=== PATIENT | female | born 1995 | race Caucasian/White ===

== ENCOUNTER 2016-11-02 11:09 | Emergency (ER) | payer SELFPAY ==
[2015-10-01 11:30] VITALS: Ht 175.3 cm; Wt 110.2 kg
[~2016-11-02] VITALS: Ht 175.3 cm; Wt 110.2 kg
[~2016-11-02 11:09] MED LIST: AMOX500T2; BUSPIRONE; NEOMYCIN; [UNRECOGNIZED DRUG - OTHER]; cephalexin; loratidine
[2016-11-02 11:23] VITALS: BP 122/74; PULSE 67; RESP 18; TEMP 97; O2SAT 98
--- NOTE | 2016-11-02 11:35 | NUR ---
Vin garcia in ED - 11/02/16 at 1936 by KWAME Patient to bed 2 to [facility] for evaluation. Side rails up.
[2016-11-02 12:15] LABS: BASOPHILS % (AUTO) 0.5 % (0.0-2.0); EOSINOPHILS # (AUTO) 0.2 K/uL (0.0-0.4); EOSINOPHILS % (AUTO) 2.9 % (0.0-4.0); HEMATOCRIT 40.9 % (36-48); HEMOGLOBIN 13.4 g/dL (12.0-16.0); LYMPHOCYTES % (AUTO) 31.8 % (20.5-51.5); MEAN CORPUSCULAR HEMOGLOBIN 28 pg (27-31); MEAN CORPUSCULAR HGB CONC 33 % (32-36); MEAN CORPUSCULAR VOLUME 86 fL (79.0-98.0); MONOCYTES # (AUTO) 0.3 K/uL (0.0-1.0); MONOCYTES % (AUTO) 4.7 % (1.7-9.3); NEUTROPHILS # (AUTO) 3.7 K/uL (1.8-7.7); NEUTROPHILS % (AUTO) 60.1 % (40.0-70.0); PLATELET COUNT (AUTO) 227 K/uL (130-430); RED BLOOD CELL COUNT(AUTO) 4.74 MIL/uL (4.2-6.2); RED CELL DISTRIBUTION WIDTH 13.1 % (9.0-15.0); WHITE BLOOD COUNT (AUTO) 6.2 K/uL (4.8-10.8)
[2016-11-02 12:21] LABS: CALCIUM 8.8 mg/dL (8.4-11.0); CREATININE 0.76 mg/dL (0.55-1.30); POTASSIUM 3.8 mmol/L (3.5-5.1)
[2016-11-02 12:26] LABS: ALBUMIN 3.6 g/dL (3.4-4.8); TOTAL BILIRUBIN 0.8 mg/dL (0.0-1.0); TOTAL PROTEIN, SERUM 7.2 g/dL (6.4-8.3)
--- NOTE | 2016-11-02 12:30 | NUR ---
Patient to ER bed 02 to gown for evaluation. Side rails up by Renetta
[2016-11-02 12:42] LABS: PROTHROMBIN TIME 10.4 SECS (9.5-12.5)
--- NOTE | 2016-11-02 13:19 | NUR ---
ER at bedside examining patient.
[2016-11-02] MEDS ORDERED: KETOROLAC TROMETHAMINE 60 MG/2 ML VIAL IM ONE (13:30)
--- NOTE | 2016-11-02 13:43 | NUR ---
Note undone in EDM - 11/02/16 at 1356 by ALEXANDRO Patient given written and verbal discharge instructions and verbalizes understanding. ER MD discussed with patient the results and treatment provided. Given copies of tests performed in ER. Patient in stable condition. ID arm band removed. Rx of MOTRIN, SUDAFED, ZITHROMAX given. Patient educated on pain management and to follow up with PMD. Pain Scale 0/10. Opportunity for questions provided and answered.
[2016-11-02 13:51] VITALS: BP 131/71; PULSE 72; RESP 19; TEMP 97.2; O2SAT 99
--- NOTE | 2016-11-02 13:51 | NUR ---
Patient given written and verbal discharge instructions and verbalizes understanding. ER MD discussed with patient the results and treatment provided. Given copies of tests performed in ER. Patient in stable condition. ID arm band removed. Rx of MOTRIN, NORCO given. Patient educated on pain management and to follow up with PMD. Pain Scale 0/10. Opportunity for questions provided and answered.
== END 2016-11-02 13:51 | disposition home or self-care (01) ==
LOC: SED 11:09
DX: N64.4 Mastodynia (principal); Z91.040 Latex allergy status
CPT/HCPCS: 36415; 80053; 81025; 84703; 85025; 85610; 85730; 99284; J1885

== ENCOUNTER 2017-09-03 13:20 | Emergency (ER) | payer MEDICAID ==
[~2017-09-03] VITALS: Ht 175.3 cm; Wt 104.3 kg
[2017-09-03 13:20] VITALS: BP_SYST 132
[~2017-09-03 13:20] MED LIST changes: -BUSPIRONE; -NEOMYCIN; -[UNRECOGNIZED DRUG - OTHER]; -cephalexin; -loratidine
--- NOTE | 2017-09-03 13:20 | NUR ---
Patient triaged and placed in waiting room. VSS and patient appears in no acute distress at this time. Accompanied by SELF, awaiting available bed, and MD notified of need for MSE.
--- NOTE | 2017-09-03 14:25 | NUR ---
PT STATES THAT SHE DOES NOT WANT TO WAIT ANY LONGER, PT LWBS
== END 2017-09-03 14:24 | disposition left against medical advice (07) ==
LOC: SED 13:20
DX: M54.5 Low back pain (principal); Z53.21 Procedure and treatment not carried out due to patient leaving prior to being seen by health care provider